=== PATIENT | female | born 1970 | race Caucasian/White ===

== ENCOUNTER 2020-03-17 11:53 | Emergency (ER) | payer OTHER, SELFPAY ==
[2020-03-17 11:55] VITALS: PULSE 74; RESP 18; TEMP 36.8; O2SAT 98; BMI 30.4
--- NOTE | 2020-03-17 12:39 | HMH.EDHA ---
ED Disposition Clinical Impression: Migraine Disposition: Home, Self-Care Condition on Discharge: Good Instructions: Migraine -- Adult Referrals: Amelia Luu [Primary Care Provider] - - Critical Care Critical Care Time: No Attestation: On 03/17/20, the high probability of a clinically significant, sudden or life threatening deterioration of the following system(s) required my full and direct attention, intervention and personal management. The time I documented below is in addition to time spent performing reported procedures but includes the following listed in this critical care notation. Medical Decision Making - Medical Records Medical records reviewed: Yes: I reviewed the patient's medical records. - [place] Inquiry Pt receiving controlled substance: No Vital Signs: 03/17/20 11:55 Temperature 98.3 F Temperature Source Oral Pulse Rate [Radial] 74 Respiratory Rate 18 02 Sat by Pulse Oximetry 98 Oxygen Delivery Method Room Air - Lab Data Lab results reviewed: Yes: I reviewed the patient's lab results. Orders (Tests/Meds): ED MEDICATIONS Discontinued Medications Generic Name Dose Route Start Last Admin Trade Name Freq PRN Reason Stop Dose Admin Dihydroergotamine Mesylate 1 mg 03/17/20 12:06 03/17/20 12:19 D.H.E. 45 1mg/Ml Amp IM 03/17/20 12:07 Not Given ONCE ONE Dihydroergotamine Mesylate 1 mg 03/17/20 12:16 03/17/20 12:19 D.H.E. 45 1mg/Ml Amp IVP 03/17/20 12:17 1 mg ONCE ONE Administration Diphenhydramine HCl 50 mg 03/17/20 12:06 03/17/20 12:19 Benadryl 50mg/1ml Vial IV 03/17/20 12:07 50 mg ONCE ONE Administration Ketorolac Tromethamine 30 mg 03/17/20 12:06 03/17/20 12:18 Toradol 30mg/Ml Vial IV 03/17/20 12:07 30 mg ONCE ONE Administration Medical Decision Narrative: Patient improved with DHE Toradol and Benadryl Headache HPI - General Chief Complaint: Headache Stated Complaint: Migraine Time Seen by Provider: 03/17/20 12:39 Mode of Arrival: Ambulatory Source of Information: Patient Limitations: No Limitations Description of Symptoms (Recalled from ER Triage Doc. by RN): States she has a migraine that has lasted for four days now. Has taken imitrex, oxycodone, and zofran with no relief. - History of Present Illness MD Complaint: headache, migraine Onset (ago): hour(s) Onset description: sudden Location: temporal, occipital Severity: similar to previous episodes Severity scale (1-10): 9 Quality: throbbing, pulsatile, sharp Relieving factors: nothing Exacerbating factors: movement of head/neck, light, noise Context: occurred at rest Associated symptoms: nausea Treatments prior to arrival: prescription analgesic, antiemetic, migraine medication - Related Data Allergies Allergy/AdvReac Type Severity Reaction Status Date / Time acetaminophen [From Lortab] Allergy Verified 03/17/20 12:07 hydrocodone [From Lortab] Allergy Verified 03/17/20 12:07 [facility] History - Hepatitis A Screen Drug use history?: No High risk sexual behaviors?: No History of sexually transmitted infection?: No Currently employed?: No Childcare worker?: No Do you have indoor plumbing?: Yes Do you have electricity?: Yes Attestation statement:: This patient has been screened for Hepatitis A risk factors. I have reviewed the patient's past medical history: Yes - Social History Educational Level: Completed High School Alcohol Intake: never Occupational Status: disabled Housing: house ROS Obtained: Yes All systems reviewed & no additional complaints - Constitutional Constitutional: Reports system reviewed and no additional complaints, except as docu - Eyes Eyes: Reports system reviewed and no additional complaints, except as docu - ENT Ears, Nose, Mouth, and Throat: Reports system reviewed and no additional complaints, except as docu - Cardiovascular Cardiovascular: Reports system reviewed and no additional complaints, except a
[2020-03-17 14:08] VITALS: BP 124/78; PULSE 74; RESP 18; TEMP 36.8; O2SAT 98
== END 2020-03-17 14:09 | disposition home or self-care (01) ==
PROVIDERS: Emergency Provider Family Medicine; PCP Physical Medicine & Rehabilitation
DX: G43.909 Migraine, unspecified, not intractable, without status migrainosus (principal)
CPT/HCPCS: 96374; 96375; 99281; 99282; J1110

== ENCOUNTER 2020-05-23 23:32 | Emergency (ER) | payer OTHER, SELFPAY ==
[2020-05-23 23:42] VITALS: BP 146/63; PULSE 120; RESP 18; TEMP 36.8; O2SAT 95; BMI 29.2
--- NOTE | 2020-05-23 23:54 | PC.NURSE ---
spoke with md, he will see patient before any orders
[2020-05-24] VITALS: BP 131/84; PULSE 115; RESP 18; O2SAT 95
--- NOTE | 2020-05-24 00:24 | PC.NURSE ---
calling dr. quevedo.
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
--- NOTE | 2020-05-24 00:25 | PC.NURSE ---
speaking to dr. quevedo
[2020-05-24 00:30] VITALS: BP 137/85; PULSE 112; RESP 17; O2SAT 95
[2020-05-24 01:08] VITALS: BP 134/76; PULSE 105; RESP 18; TEMP 36.7
--- NOTE | 2020-05-24 01:09 | PC.NURSE ---
Spouse driving pt home.
== END 2020-05-24 01:10 | disposition home or self-care (01) ==
PROVIDERS: Emergency Provider Emergency Medicine; PCP Family Medicine
DX: M62.838 Other muscle spasm (principal); M79.2 Neuralgia and neuritis, unspecified
CPT/HCPCS: 96374; 99282

== ENCOUNTER 2020-12-23 09:34 | Emergency (ER) | payer MEDICAID, SELFPAY ==
[2020-12-23 09:37] VITALS: BP 154/73; PULSE 91; RESP 16; TEMP 36.6; O2SAT 99; BMI 30.1
--- NOTE | 2020-12-23 09:49 | HMH.EDGENADL ---
ED Disposition Clinical Impression: Migraine Qualifiers: Migraine type: with aura Status migrainosus presence: without status migrainosus Intractability: not intractable Qualified Code(s): G43.109 - Migraine with aura, not intractable, without status migrainosus Disposition: Home, Self-Care Condition on Discharge: Good Instructions: DI for Migraine Additional Instructions: You have been evaluated for headache, diagnosed with migraine. Please take all home medications as prescribed. Take Zofran as needed for nausea. Follow-up with your primary care doctor and neurologist. Return to the emergency department for any new or worsening symptoms. Prescriptions: Ondansetron [Zofran 4mg ODT] 4 mg PO Q6 PRN #12 tab PRN Reason: Nausea And Vomiting Prescription Printed Referrals: Sanjana Guthrie [Primary Care Provider] - Time of Disposition: 10:52 - Critical Care Critical Care Time: No Attestation: On 12/23/20, the high probability of a clinically significant, sudden or life threatening deterioration of the following system(s) required my full and direct attention, intervention and personal management. The time I documented below is in addition to time spent performing reported procedures but includes the following listed in this critical care notation. Medical Decision Making - Medical Records Medical records reviewed: Yes: I reviewed the patient's medical records. - [place] Inquiry Pt receiving controlled substance: No Vital Signs: 12/23/20 09:37 12/23/20 10:20 12/23/20 11:04 Temperature 97.8 F Temperature Source Oral Pulse Rate [Right Radial] 91 H 75 67 Respiratory Rate 16 Blood Pressure [Right Arm] 154/73 H 113/65 119/71 Blood Pressure Mean [Right Arm] 100 81 87 Blood Pressure Source [Right Arm] Automatic Cuff Automatic Cuff Automatic Cuff Blood Pressure Position [Right Arm] Sitting Sitting Sitting 02 Sat by Pulse Oximetry 99 100 100 Oxygen Delivery Method Room Air Room Air Room Air 12/23/20 11:53 12/23/20 12:03 Temperature Temperature Source Pulse Rate [Right Radial] 69 69 Respiratory Rate Blood Pressure [Right Arm] 118/68 125/72 Blood Pressure Mean [Right Arm] 84 89 Blood Pressure Source [Right Arm] Automatic Cuff Automatic Cuff Blood Pressure Position [Right Arm] Sitting Sitting 02 Sat by Pulse Oximetry 100 100 Oxygen Delivery Method Room Air Room Air Orders (Tests/Meds): ED MEDICATIONS Discontinued Medications Generic Name Dose Route Start Last Admin Trade Name Caden PRN Reason Stop Dose Admin Dexamethasone Sodium Phosphate 8 mg 12/23/20 11:27 12/23/20 11:37 Dexamethasone 4mg/Ml 1ml Vial IV 12/23/20 11:28 8 mg ONCE ONE Administration Diphenhydramine HCl 25 mg 12/23/20 09:48 12/23/20 09:59 Diphenhydramine 50mg/Ml Vial IV 12/23/20 09:49 25 mg ONCE ONE Administration Sodium Chloride 1,000 mls @ 999 mls/hr 12/23/20 10:00 12/23/20 10:00 Sod Chlor 0.9% 1000ml Bag IV 12/23/20 11:00 999 mls/hr .Q1H1M PAUL Administration Ketorolac Tromethamine 15 mg 12/23/20 09:48 12/23/20 09:59 Ketorolac 30mg/Ml Vial IV 12/23/20 09:49 15 mg ONCE ONE Administration Metoclopramide HCl 10 mg 12/23/20 09:48 12/23/20 09:59 Metoclopramide Hcl 10mg/2ml Vial IVP 12/23/20 09:49 10 mg ONCE ONE Administration Promethazine HCl 12.5 mg 12/23/20 11:27 12/23/20 11:37 Promethazine Hcl 25mg/Ml 1ml Vial IV 12/23/20 11:28 12.5 mg ONCE ONE Administration Sodium Chloride 25 ml 12/23/20 11:27 12/23/20 11:37 Sodium Chloride 0.9% 25ml Bag IV 12/23/20 11:28 25 ml ONCE ONE Administration Sumatriptan Succinate 6 mg 12/23/20 12:20 12/23/20 12:28 Sumatriptan 6mg/0.5ml Vial SQ 12/23/20 12:21 6 mg ONCE ONE Administration Medical Decision Narrative: In summary this is a 50-year-old female with history of migraine headaches presenting to the emergency department with headache. Patient is clinically stable on arrival. Vital sig
[2020-12-23 10:20] VITALS: BP 113/65; PULSE 75; O2SAT 100
[2020-12-23 11:04] VITALS: BP 119/71; PULSE 67; O2SAT 100
--- NOTE | 2020-12-23 11:28 | PC.NURSE ---
checked on pt at this time, pt states she is still nauseated and her head is still hurting, states medication has helped some but not very much . Notified ER .
[2020-12-23 11:53] VITALS: BP 118/68; PULSE 69; O2SAT 100
[2020-12-23 12:03] VITALS: BP 125/72; PULSE 69; O2SAT 100
--- NOTE | 2020-12-23 13:13 | PC.NURSE ---
pt reports her headache is better, pt sitting up drinking benito mist at this time will continue to monitor
[2020-12-23 13:27] VITALS: BP 125/72; PULSE 69; RESP 16; TEMP 36.6; O2SAT 98
== END 2020-12-23 13:28 | disposition home or self-care (01) ==
PROVIDERS: Emergency Provider Emergency Medicine; PCP Family Medicine
DX: G43.109 Migraine with aura, not intractable, without status migrainosus (principal); Z88.5 Allergy status to narcotic agent
CPT/HCPCS: 96365; 96372; 96375; 99282